=== PATIENT | male | born 1940 | race African-American/Black ===

== ENCOUNTER 2024-05-27 14:18 | Inpatient (IN) | payer MEDICARE, MEDICAID ==
[~2024-05-27] VITALS: Ht 165.1 cm; Wt 68.5 kg
[~2024-05-27 14:18] MED LIST: CEPH-556 PO
[2024-05-27 16:50] LABS: BASOPHILS % (AUTO) 0.6 % (0.0-2.0); EOSINOPHILS % (AUTO) 6.3 % (1.0-6.0); HEMATOCRIT 38.2 % (41-53); HEMOGLOBIN 12.7 g/dL (13.5-17.5); LYMPHOCYTES # (AUTO) 0.9 K/uL (1.0-4.8); LYMPHOCYTES % (AUTO) 23.6 % (22.0-44.0); MEAN CORPUSCULAR HEMOGLOBIN 29.5 pg (26.0-34.0); MEAN CORPUSCULAR HGB CONC 33.2 G/dL (31.0-37.0); MEAN CORPUSCULAR VOLUME 89 fL (80-100); MONOCYTES # (AUTO) 0.5 K/uL (0.1-1.0); MONOCYTES % (AUTO) 11.3 % (2.0-9.0); NEUTROPHILS # (AUTO) 2.3 K/uL (1.8-7.7); NEUTROPHILS % (AUTO) 58.2 % (40.0-70.0); PLATELET COUNT (AUTO) 194 K/uL (150-450); RED CELL DISTRIBUTION WIDTH 15.2 % (11.5-14.5)
[2024-05-27 17:00] LABS: ANION GAP 7 mmol/L (8-16); CALCIUM, TOTAL 8.5 mg/dL (8.8-10.5); CARBON DIOXIDE 29 mmol/L (22-29); CHLORIDE 103 mmol/L (98-107); CREATININE 0.81 mg/dL (0.60-1.30); GLOMERULAR FILTR. RATE CALC > 60 mL/min (>60); GLUCOSE,RANDOM 96 mg/dL (70-110); POTASSIUM 3.6 mmol/L (3.5-5.1); SODIUM SERUM 139 mmol/L (136-145); UREA NITROGEN, BLOOD 12 mg/dL (7-18)
[2024-05-27 17:14] LABS: ALANINE AMINOTRANSFERASE 18 U/L (12-78); ALBUMIN 3.3 g/dL (3.4-5.0); ALKALINE PHOSPHATASE 98 U/L (46-116); ASPARTATE AMINOTRANSFERASE 22 U/L (15-37); BILIRUBIN,TOTAL 0.2 mg/dL (0.1-1.0); TOTAL PROTEIN, SERUM 7.3 g/dL (6.4-8.2)
[2024-05-27 17:16] LABS: BILIRUBIN,DIRECT < 0.05 mg/dL (0.00-0.20)
[2024-05-27] MEDS ORDERED: HALOPERIDOL 5 MG TABLET PO PRN (18:15)
[2024-05-27] MEDS ORDERED: LORazepam 2 MG TABLET PO PRN (18:15)
[2024-05-27 19:14] LABS: COVID AG,FIA SOURCE NASAL SWAB
[2024-05-27 19:31] LABS: SARS-COV2 (COVID) ANTIGEN,FIA Negative (Negative)
[2024-05-28 02:10] LABS: APPEARANCE,URINE CLEAR (CLEAR); BILIRUBIN,URINE NEGATIVE (NEGATIVE); COLOR,URINE LIGHT YELLOW (YELLOW); GLUCOSE, URINE (UA) NEGATIVE (NEGATIVE); KETONES,URINE NEGATIVE (NEGATIVE); LEUKOCYTE ESTERASE ,URINE NEGATIVE (NEGATIVE); NITRATE,URINE NEGATIVE (NEGATIVE); OCCULT BLOOD,URINE NEGATIVE (NEGATIVE); PROTEIN,URINE NEGATIVE (NEGATIVE); SPECIFIC GRAVITIY, URINE 1.019 (1.003-1.030); UROBILINOGEN,URINE <=1.0 mg/dL (<=1.0)
[2024-05-28 02:17] LABS: ALCOHOL, URINE DRUG SCREEN NEGATIVE (NEGATIVE); AMPHET/METH SCREEN,URINE NEGATIVE (NEGATIVE); BARBITURATE SCREEN, URINE NEGATIVE (NEGATIVE); BENZODIAZEPINES SCREEN,URINE NEGATIVE (NEGATIVE); CANNABINOID SCREEN,URINE NEGATIVE (NEGATIVE); COCAINE SCREEN,URINE NEGATIVE (NEGATIVE); METHADONE SCREEN, URINE NEGATIVE (NEGATIVE); OPIATE SCREEN,URINE NEGATIVE (NEGATIVE); PHENCYCLIDINE SCREEN,URINE NEGATIVE (NEGATIVE)
[2024-05-28 07:06] LABS: CHOL/HDL RATIO 3.4 (4.2-7.3); CHOLESTEROL 157 mg/dL (131-200); HDL CHOLESTEROL 46 mg/dL (40-60); LDL CHOL (CALC.) 94 mg/dL (0-130); TRIGLYCERIDES 86 mg/dL (15-150)
[2024-05-28 07:22] LABS: HEMOGLOBIN A1C 5.8 % (3.8-5.6)
[2024-05-28 10:20] VITALS: O2SAT 100
[2024-05-28 12:25] VITALS: BP 137/72; PULSE 59; RESP 15; TEMP 98; O2SAT 96
[2024-05-28] MEDS: DONEPEZIL HCL 5 MG TABLET PO SCH (14:02)
[2024-05-28] MEDS: ESCITALOPRAM OXALATE 10 MG TABLET PO SCH (14:02)
[2024-05-28] MEDS ORDERED: MAGNESIUM HYDROXIDE SUSPENSION 30 ML UDCUP PO PRN (14:45)
[2024-05-28] MEDS ORDERED: IBUPROFEN 400 MG TABLET PO PRN (14:45)
[2024-05-28] MEDS ORDERED: ACETAMINOPHEN 325 MG TABLET PO PRN (14:45)
[2024-05-28] MEDS ORDERED: PETROLATUM,WHITE 28 GM JELLY TP PRN (14:45)
[2024-05-28] MEDS ORDERED: DOCUSATE SODIUM 100 MG CAPSULE PO PRN (14:45)
[2024-05-28] MEDS ORDERED: ONDANSETRON 4 MG TABLET PO PRN (14:45)
[2024-05-28] MEDS ORDERED: CloNIDine HCL 0.1 MG TABLET PO PRN (14:45)
[2024-05-28] MEDS ORDERED: NICOTINE 14 MG/24 HOUR PATCH TD PRN (14:45)
[2024-05-28] MEDS ORDERED: LOPERAMIDE HCL 2 MG CAPSULE PO PRN (14:45)
[2024-05-28] MEDS ORDERED: ALBUTEROL SULFATE HFA 90 MCG/PUFF 8 GM INHALER IH PRN (14:45)
[2024-05-28] MEDS ORDERED: GuaiFENesin/D-METHORPHAN [SUGAR-FREE] 200-20MG/10 ML SYRUP UDCUP PO PRN (14:45)
[2024-05-28] MEDS ORDERED: MAG HYDROX/ALUMINUM HYD/SIMETH ES 30 ML SUSPENSION UDCUP PO PRN (14:45)
[2024-05-28] MEDS: DOCUSATE SODIUM 100 MG CAPSULE PO SCH (16:45)
[2024-05-28 20:29] VITALS: BP 116/59; PULSE 84; RESP 18; TEMP 97.8; O2SAT 95
[2024-05-29 08:44] LABS: HEMOGLOBIN A1C 5.9 % (3.8-5.6)
[2024-05-29 09:41] LABS: CHOL/HDL RATIO 3.3 (4.2-7.3); THYROID STIMULATING HORMONE 2.21 uIU/mL (0.36-3.74)
[2024-05-29 10:03] VITALS: BP 112/63; PULSE 66; RESP 18; TEMP 97.4; O2SAT 96
[2024-05-29] MEDS: ASPIRIN 81 MG CHEWABLE TABLET PO SCH (10:09)
[2024-05-29] MEDS: MULTIVITAMINS WITH MINERALS, THERAPEUTIC TABLET PO SCH (10:10)
[2024-05-29] MEDS: PANTOPRAZOLE SODIUM 40 MG DR TABLET PO SCH (10:10)
[2024-05-29 21:13] VITALS: BP 114/68; PULSE 70; RESP 18; TEMP 97.6; O2SAT 96
[2024-05-29] MEDS: ETHYL ALCOHOL 62% ANTISEPTIC NASAL SANITIZER 0.6 ML AMPUL NASAL SCH (22:43)
[2024-05-30 10:21] VITALS: BP 115/64; PULSE 60; RESP 18; TEMP 97.7; O2SAT 95
[2024-05-30 20:21] VITALS: BP 108/65; PULSE 71; RESP 18; O2SAT 98
[2024-05-31] MEDS: ZOLPIDEM TARTRATE 5 MG TABLET PO PRN (00:46)
[2024-05-31 13:33] VITALS: BP 107/68; PULSE 63; RESP 18; TEMP 97.5; O2SAT 98
[2024-05-31 21:29] VITALS: BP 121/64; PULSE 67; RESP 18; TEMP 97.3; O2SAT 98
[2024-06-01 10:59] VITALS: BP 136/80; PULSE 70; RESP 18; TEMP 97.3; O2SAT 96
[2024-06-01 21:06] VITALS: BP 111/73; PULSE 77; RESP 18; TEMP 97; O2SAT 95
[2024-06-02 08:30] VITALS: BP 111/71; PULSE 91; RESP 18; TEMP 97.1; O2SAT 95
[2024-06-02] MEDS ORDERED: MULT-1303 PO (11:45)
[2024-06-02] MEDS ORDERED: ASPI-1450 PO (11:45)
[2024-06-02] MEDS ORDERED: DONE-52 PO (11:45)
[2024-06-02] MEDS ORDERED: ESCI-8 PO (11:45)
[2024-06-02] MEDS ORDERED: DOCU-385 PO (11:45)
[2024-06-02] MEDS ORDERED: PANT-31 PO (11:45)
== END 2024-06-02 14:35 | DRG 885 ==
LOC: EMS 14:19 → 3EC 05-28 11:20
PROVIDERS: ADMIT Psychiatry & Neurology Child & Adolescent Psychiatry; ATTEND Psychiatry & Neurology Child & Adolescent Psychiatry
PROC: GZ56ZZZ Individual Psychotherapy, Supportive (ICD-10-PCS; principal; 2024-05-28)
PROC: GZ58ZZZ Individual Psychotherapy, Cognitive-Behavioral (ICD-10-PCS; 2024-05-28)
DX: F33.2 Major depressive disorder, recurrent severe without psychotic features (principal); F03.911 Unspecified dementia, unspecified severity, with agitation; F03.918 Unspecified dementia, unspecified severity, with other behavioral disturbance; Z20.822 Contact with and (suspected) exposure to COVID-19; D64.9 Anemia, unspecified; E78.00 Pure hypercholesterolemia, unspecified; I10 Essential (primary) hypertension; Z79.899 Other long term (current) drug therapy; Z86.73 Personal history of transient ischemic attack (TIA), and cerebral infarction without residual deficits
CPT/HCPCS: 80048; 80061; 80076; 80307; 81003; 83036; 84443; 85025; 87081; 99285